=== PATIENT | female | born 1980 | race African-American/Black ===

== ENCOUNTER 2020-09-02 13:57 | Emergency (ER) | payer OTHER ==
[~2020-09-02] VITALS: Ht 172.7 cm; Wt 133.4 kg
[2020-09-02 14:30] LABS: ABSOLUTE NEUTROPHILS 2.3 thou/uL (1.4-8.2); BASOPHILS 0.7 % (0.0-2.0); EOSINOPHILS 1.6 % (0.0-3.0); HEMATOCRIT 34.2 % (37.0-47.0); HEMOGLOBIN 11.4 gm/dL (12.0-15.0); LYMPHOCYTES 33.2 % (24.0-44.0); MCH 27.2 pg (26.0-34.0); MCHC 33.3 g/dL (28.0-37.0); MCV 81.7 fL (80.0-100.0); MONOCYTES 10.2 % (1.0-8.0); PLATELET COUNT 228 thou/uL (150-400); POLYS 54.3 % (36.0-66.0); RBC 4.19 mil/uL (4.20-5.00); RDW 13.1 % (10.5-14.5); WBC 4.2 thou/uL (4.0-11.0)
[2020-09-02 14:46] LABS: ANION GAP 7 mmol/L (7-16); BUN 11 mg/dL (7-18); CALCIUM 8.8 mg/dL (8.5-10.1); CHLORIDE 104 mmol/L (98-107); CO2 28 mmol/L (21-32); CREATININE 1.1 mg/dL (0.6-1.0); GLUCOSE 113 mg/dL (74-106); POTASSIUM 3.3 mmol/L (3.5-5.1); SODIUM 139 mmol/L (136-145)
[2020-09-02 14:56] LABS: ALBUMIN 3.3 g/dL (3.4-5.0); SGOT 13 U/L (15-37); SGPT 21 U/L (14-59); TOTAL BILIRUBIN 0.2 mg/dL (0.2-1.0); TOTAL PROTEIN 7.9 g/dL (6.4-8.2); TROPONIN-I <0.06 ng/mL (<0.06)
[2020-09-02 16:50] VITALS: BP 131/78
--- NOTE | 2020-09-03 11:05 | EKG ---
[place] [address] [facility] [place] [address] ELECTROCARDIOGRAM REPORT Name: OFELIA GRIDER Room #: DEP JOSE Chandler#: [id number] Admission: 09/02/20 Attend Phys: Discharge: 09/02/20 Date of : 80 Report #: [id number] [facility] ED Test Date: 2020-09-02 Test Time: 14:04:05 Pat Name: OFELIA GRIDER Department: Room: Gender: F Executive Administrative Assistant: : 1980 Requested By: Brandon James Order Number: [id number] MD: Rigoberto Lopez Measurements Intervals [place] Rate: 65 P: 65 DC: 147 QRS: 12 QRSD: 82 T: -1 QT: 413 QTc: 430 Interpretive Statements Sinus rhythm Borderline T abnormalities, inferior leads No previous ECG available for comparison Electronically Signed On 09-03-2020 11:05:07 CDT by Rigoberto Lopez [email or web address] <ELECTRONICALLY SIGNED> By: Rigoberto Lopez MD 09/03/20 1105 1404 1404 Rigoberto Lopez MD /EPI
== END 2020-09-02 17:09 | disposition home or self-care (01) ==
LOC: ER 13:57
PROVIDERS: Physician Assistant
DX: R07.9 Chest pain, unspecified (principal); R42 Dizziness and giddiness; Z79.899 Other long term (current) drug therapy